=== PATIENT | male | born 1990 | race Caucasian/White ===

== ENCOUNTER 2017-11-13 10:02 | Emergency (ER) | payer OTHER ==
[~2017-11-13] VITALS: Ht 177.8 cm; Wt 98.5 kg
[2017-11-13 10:06] VITALS: TEMP 36.7; Ht 177.8 cm; Wt 98.5 kg
[2017-11-13] MEDS ORDERED: ONDANSETRON INJ 2 MG/ML 2 ML VIAL IV STA ×3 (10:17→13:02)
[2017-11-13] MEDS ORDERED: SODIUM CHLORIDE 0.9% 1000ML 1,000 ML IV STA ×2 (10:17→11:58)
[2017-11-13] MEDS ORDERED: MoRPHine SULFATE 4 MG/ML 1 ML CARP\\VIAL IV STA ×2 (10:25→12:55)
[2017-11-13 10:26] LABS: EOS % 0.1 %; EOS ABS # 0.01 K/uL (0-0.5); HEMOGLOBIN 17.8 g/dL (14.0-18.0); IG# 0.03 K/uL (0.00-0.02); LYMPH % 3.9 %; LYMPH ABS # 0.35 K/uL (1.2-3.4); MEAN CELL VOLUME 85.4 fL (80-100); MEAN CORPUSCULAR HGB CONC 36.3 g/dl (32-36); MEAN PLATELET VOLUME 9.8 fL (7.4-10.4); MONO ABS # 0.54 K/uL (0.11-0.59); NEUT % 89.7 %; NEUT ABS # 8.14 K/uL (1.4-6.5); PLATELET COUNT 231 K/uL (130-400); RED CELL DISTRIBUTION WIDTH CV 12.7 % (11.5-14.5); RED CELL DISTRIBUTION WIDTH SD 39.2 fL (36.4-46.3); WHITE BLOOD COUNT 9.07 K/uL (4.8-10.8)
[2017-11-13 10:48] LABS: ALBUMIN 4.5 gm/dl (3.4-5.0); CALCIUM 9.8 mg/dl (8.5-10.1); CREATININE 1.29 mg/dl (0.60-1.40); POTASSIUM 3.7 mmol/L (3.5-5.1)
[2017-11-13 10:51] LABS: TOTAL PROTEIN 8.5 gm/dl (6.4-8.2)
--- NOTE | 2017-11-13 11:01 | DIAGNOSTIC IMAGING REPORT ---
CT SCAN OF THE ABDOMEN AND PELVIS WITHOUT CONTRAST CLINICAL HISTORY: LUQ pain, vomiting COMPARISON STUDY: No previous studies for comparison. TECHNIQUE: CT scan of the abdomen and pelvis was performed from the lung bases to the proximal femurs. Images are reviewed in the axial, sagittal, and coronal planes. IV contrast was not administered for this examination. A dose lowering technique was utilized adhering to the principles of ALARA. CT DOSE: 1322.79 mGy.cm FINDINGS: Lower chest: The heart is normal in size and configuration, without pericardial effusion. The lung bases and pleural spaces are clear. Liver: The unenhanced liver is normal in size, contour, and attenuation. There is no intrahepatic biliary ductal dilatation. Gallbladder: Unremarkable. Spleen: Normal in size and attenuation. Pancreas: Unremarkable. Adrenal glands: Unremarkable. Kidneys: No left kidney is visualized. There are no renal, ureteral, or bladder calculi identified. Bowel: There are multiple fluid-filled small bowel loops. There is gastric distention. There is fluid present within nondilated right colon. The appendix appears normal. There are nondistended distal ileal loops. There is no evidence of acute diverticulitis. Peritoneum: There is no intraperitoneal free air or abdominal ascites. Vasculature: The abdominal aorta is normal in course and caliber. Adenopathy: None. Pelvic viscera: The bladder, and pelvic viscera are unremarkable. Skeletal structures: No destructive osseous lesions are seen. IMPRESSION: 1. Absent left kidney 2. No renal, ureteral, or bladder calculi identified 3. Normal appendix. No evidence of acute diverticulitis 4. Distended fluid-filled stomach 5. Multiple borderline distended fluid-filled small bowel loops with air-fluid levels. Although the distal small bowel is of normal caliber, a discrete transition zone is not identified. Diagnostic considerations include an ileus/enteritis versus a low-grade small bowel obstruction. Clinical follow-up is advocated Electronically signed by: Dwayne Delgado M.D. 11/13/2017 10:59 AM Dictated Date/Time: 11/13/2017 10:53 AM
--- NOTE | 2017-11-13 11:02 | DIAGNOSTIC IMAGING REPORT ---
CHEST ONE VIEW PORTABLE CLINICAL HISTORY: Pain, radiating to the left upper quadrant COMPARISON STUDY: No previous studies for comparison. FINDINGS: The cardiac and mediastinal contours are normal. There is no evidence of focal pulmonary consolidation. There is no evidence of failure. No pleural effusions are visualized.[ There is no free air. There are prominent upper abdominal bowel loops. IMPRESSION: No active disease in the chest. Electronically signed by: Dwayne Delgado M.D. 11/13/2017 11:01 AM Dictated Date/Time: 11/13/2017 11:00 AM
[2017-11-13] MEDS ORDERED: ONDA4TAB10 SL (13:15)
--- NOTE | 2017-11-13 13:16 | EMERGENCY ROOM VISIT NOTE ---
History Report prepared by Claudine: Cem Petersen Under the Supervision of: Dr. Aurelio Connors D.O. First contact with patient: 10:15 Chief Complaint: VOMITING Stated Complaint: ILLNESS Nursing Triage Summary: Pt reports LUQ pain. Vomiting since last night, also c/o diarrhea. Had hot wings to eat last night and had 3 tequila drinks over 3 hours. Reports emesis is orange/red in color. LUQ tender. History of Present Illness The patient is a 27 year old male who presents to the Emergency Room with complaints of worsening sharp LUQ pain rated as 8/10 that began 12 hours ago. The patient woke up last night every hour due to nausea, vomiting (5 episodes), dry heaving (3 episodes), and diarrhea (3 episodes). He states that last night, he ate hot wings and drank 3 shots of tequila. His states his emesis is orange/ red in color. He denies back pain and upper respiratory symptoms. He denies any medical problems. Source of History: patient Onset: 12 hours ago Position: abdomen (LUQ) Symptom Intensity: pain rated as 8/10 Quality: sharp Timing: worsening Associated Symptoms: + nausea, + vomiting, + diarrhea, No SOB, No back pain Review of Systems See HPI for pertinent positives & negatives. A total of 10 systems reviewed and were otherwise negative. Social History Smoking Status: Never Smoker Alcohol Use: occasionally Marital Status: single Housing Status: lives with friends Current/Historical Medications No Active Prescriptions or Reported Meds Allergies Coded Allergies: No Known Allergies (Unverified , 11/13/17) Physical Exam Vital Signs Date Time Temp Pulse Resp B/P (MAP) Pulse Ox O2 Delivery O2 Flow Rate FiO2 11/13/17 12:17 117 119/70 95 Room Air 11/13/17 10:58 115 20 120/92 96 Room Air 11/13/17 10:10 126 11/13/17 10:06 36.7 135 18 112/73 96 Room Air Physical Exam CONSTITUTIONAL/VITAL SIGNS: Reviewed / noted above. GENERAL: Non-toxic in appearance. INTEGUMENTARY: Warm, dry, and [place]. HEAD: Normocephalic. EYES: without scleral icterus or trauma. ENT/OROPHARYNX: clear and moist. LYMPHADENOPATHY/NECK: Is supple without lymphadenopathy or meningismus. RESPIRATORY: Lungs clear and equal. CARDIOVASCULAR: Tachycardiac rate. Regular rhythm. GI/ABDOMEN: Diffuse abdominal tenderness greater in the LUQ. Soft. No organomegaly or pulsatile mass. No rebound or guarding. Normal bowel sounds. EXTREMITIES: Warm and well perfused. BACK: No CVA tenderness. NEUROLOGICAL: Intact without focal deficits. PSYCHIATRIC: normal affect. MUSCULOSKELETAL: Normally developed with good muscle tone. Medical Decision & Procedures ER Provider Diagnostic Interpretation: Radiology results as stated below per my review and radiologist interpretation: CHEST ONE VIEW PORTABLE CLINICAL HISTORY: Pain, radiating to the left upper quadrant COMPARISON STUDY: No previous studies for comparison. FINDINGS: The cardiac and mediastinal contours are normal. There is no evidence of focal pulmonary consolidation. There is no evidence of failure. No pleural effusions are visualized.[ There is no free air. There are prominent upper abdominal bowel loops. IMPRESSION: No active disease in the chest. Electronically signed by: Dwayne Delgado M.D. 11/13/2017 11:01 AM Dictated Date/Time: 11/13/2017 11:[address] SCAN OF THE ABDOMEN AND PELVIS WITHOUT CONTRAST CLINICAL HISTORY: LUQ pain, vomiting COMPARISON STUDY: No previous studies for comparison. TECHNIQUE: CT scan of the abdomen and pelvis was performed from the lung bases to the proximal femurs. Images are reviewed in the axial, sagittal, and coronal planes. IV contrast was not administered for this examination. A dose lowering technique was utilized adhering to the principles of ALARA. CT DOSE: 1322.79 mGy.cm FINDINGS: Lower chest: The heart is normal in size and configuration, without pericardial effusion. The lung bases and pleural spaces are clear. Liver: The unenhanced liver is normal in size, contour, and attenuation. There is no intrahepatic biliary ductal dilatation. Gallbladder: Unremarkable. Spleen: Normal in size and attenuation. Pancreas: Unremarkable. Adrenal glands: Unremarkable. Kidneys: No left kidney is visualized. There are no renal, ureteral, or bladder calculi identified. Bowel: There are multiple fluid-filled small bowel loops. There is gastric distention. There is fluid present within nondilated right colon. The appendix appears normal. There are nondistended distal ileal loops. There is no evidence of acute diverticulitis. Peritoneum: There is no intraperitoneal free air or abdominal ascites. Vasculature: The abdominal aorta is normal in course and caliber. Adenopathy: None. Pelvic viscera: The bladder, and pelvic viscera are unremarkable. Skeletal structures: No destructive osseous lesions are seen. IMPRESSION: 1. Absent left kidney 2. No renal, ureteral, or bladder calculi identified 3. Normal appendix. No evidence of acute diverticulitis 4. Distended fluid-filled stomach 5. Multiple borderline distended fluid-filled small bowel loops with air-fluid levels. Although the distal small bowel is of normal caliber, a discrete transition zone is not identified. Diagnostic considerations include an ileus/enteritis versus a low-grade small bowel obstruction. Clinical follow-up is advocated Electronically signed by: Dwayne Delgado M.D. 11/13/2017 10:59 AM Dictated Date/Time: 11/13/2017 10:53 AM Laboratory Results 11/13/17 10:15 Red Blood Count 5.74, Mean Corpuscular Volume 85.4, Mean Corpuscular Hemoglobin 31.0, Mean Corpuscular Hemoglobin Concent 36.3, Mean Platelet Volume 9.8, Neutrophils (%) (Auto) 89.7, Lymphocytes (%) (Auto) 3.9, Monocytes (%) (Auto) 6.0, Eosinophils (%) (Auto) 0.1, Basophils (%) (Auto) 0.0, Neutrophils # (Auto) 8.14, Lymphocytes # (Auto) 0.35, Monocytes # (Auto) 0.54, Eosinophils # (Auto) 0.01, Basophils # (Auto) 0.00 11/13/17 10:15 Test 11/13/17 10:15 11/13/17 11:45 White Blood Count 9.07 K/uL (4.8-10.8) Red Blood Count 5.74 M/uL (4.7-6.1) Hemoglobin 17.8 g/dL (14.0-18.0) Hematocrit 49.0 % (42-52) Mean Corpuscular Volume 85.4 fL (80-100) Mean Corpuscular Hemoglobin 31.0 pg (25-34) Mean Corpuscular Hemoglobin Concent 36.3 g/dl (32-36) Platelet Count 231 K/uL (130-400) Mean Platelet Volume 9.8 fL (7.4-10.4) Neutrophils (%) (Auto) 89.7 % Lymphocytes (%) (Auto) 3.9 % Monocytes (%) (Auto) 6.0 % Eosinophils (%) (Auto) 0.1 % Basophils (%) (Auto) 0.0 % Neutrophils # (Auto) 8.14 K/uL (1.4-6.5) Lymphocytes # (Auto) 0.35 K/uL (1.2-3.4) Monocytes # (Auto) 0.54 K/uL (0.11-0.59) Eosinophils # (Auto) 0.01 K/uL (0-0.5) Basophils # (Auto) 0.00 K/uL (0-0.2) RDW Standard Deviation 39.2 fL (36.4-46.3) RDW Coefficient of Variation 12.7 % (11.5-14.5) Immature Granulocyte % (Auto) 0.3 % Immature Granulocyte # (Auto) 0.03 K/uL (0.00-0.02) Anion Gap 7.0 mmol/L (3-11) Est Creatinine Clear Calc Drug Dose 99.4 ml/min Estimated GFR () 86.3 Estimated GFR (Non- 74.4 BUN/Creatinine Ratio 17.3 (10-20) Calcium Level 9.8 mg/dl (8.5-10.1) Total Bilirubin 2.2 mg/dl (0.2-1) Direct Bilirubin 0.3 mg/dl (0-0.2) Aspartate Amino Transf (AST/SGOT) 23 U/L (15-37) Alanine Aminotransferase (ALT/SGPT) 39 U/L (12-78) Alkaline Phosphatase 96 U/L (45-117) Total Protein 8.5 gm/dl (6.4-8.2) Albumin 4.5 gm/dl (3.4-5.0) Lipase 97 U/L (73-393) Urine Color ORANGE Urine Appearance TURBID (CLEAR) Urine pH 5.5 (4.5-7.5) Urine Specific Matthews 1.030 (1.000-1.030) Urine Protein NEG (NEG) Urine Glucose (UA) NEG (NEG) Urine Ketones NEG (NEG) Urine Occult Blood NEG (NEG) Urine Nitrite NEG (NEG) Urine Bilirubin NEG (NEG) Urine Urobilinogen NEG (NEG) Urine Leukocyte Esterase NEG (NEG) Urine WBC (Auto) 1-5 /hpf (0-5) Urine RBC (Auto) 0-4 /hpf (0-4) Urine Hyaline Casts (Auto) 1-5 /lpf (0-5) Urine Epithelial Cells (Auto) 10-20 /lpf (0-5) Urine Bacteria (Auto) NEG (NEG) Laboratory results as stated above per my review. Medications Administered Medications (Trade) Dose Ordered Sig/Gordon Route Start Time Stop Time Status Last Admin Dose Admin Sodium Chloride 1,000 ml @ 999 mls/hr Q1H1M STAT IV 11/13/17 10:17 11/13/17 11:17 DC 11/13/17 10:22 999 MLS/HR Ondansetron HCl (Zofran Inj) 4 mg NOW STAT IV 11/13/17 10:17 11/13/17 10:19 DC 11/13/17 10:33 4 MG Morphine Sulfate (MoRPHine SULFATE INJ) 4 mg NOW STAT IV 11/13/17 10:25 11/13/17 10:27 DC 11/13/17 10:34 4 MG Sodium Chloride 1,000 ml @ 999 mls/hr Q1H1M STAT IV 11/13/17 11:58 11/13/17 12:58 DC 11/13/17 12:21 999 MLS/HR ED Course 1015: Previous medical records were reviewed. The patient was evaluated in room B6. A complete history and physical examination was performed. 1017: Zofran Inj, 4 mg, IV; Sodium Chloride 1000 ml @ 999 mls/hr IV. 1025: Morphine Sulfate Inj, 4 mg, IV. 1158: Sodium Chloride 1000 ml @ 999 mls/hr IV. 1255: Zofran Inj, 4 mg, IV; Morphine Sulfate Inj,4 mg, IV. 1302: Zofran Inj, 4 mg, IV. 1330: On reevaluation, the patient is resting. I discussed the results and findings with the patient. He verbalized agreement of the treatment plan. He was discharged home. Medical Decision Differential considered: pancreatitis, hepatitis, or acute cholecystitis, AAA, UTI, pyelonephritis, kidney stones, appendicitis, diverticulitis, shingles, bowel obstruction mesenteric ischemia, intussusception,hernia, testicular torsion. This is a 27-year-old male who presents to the ED with a chief complaint of nausea, vomiting diarrhea. The patient states that the symptoms started around last night with some mild discomfort in his left upper quadrant. The patient states that he had some hot wings and tequila prior to this. The patient states that he developed vomiting and diarrhea around 12 or 1:00 in the morning. He states that he had been vomiting about once an hour for about 4 -5 hours and has had 2 or 3 episodes of diarrhea. He presents this morning with left upper quadrant abdominal pain. His last episode of vomiting was about 1 hour prior to his arrival and diarrhea 2 or 3 hours prior to arrival. His vital signs revealed a tachycardia. His physical exam revealed some tenderness in left upper quadrant. CT scan of the abdomen pelvis reveals findings suggesting enteritis versus a low-grade small bowel obstruction. Enteritis is more likely based on the history. His CBC is normal, complete metabolic panel was unremarkable with exception of his BUN of 22 and his bilirubin was 2.2. Lipase was negative. The patient was treated with IV fluids, IV morphine and IV Zofran. He was feeling much better at the time of disposition. He was discharged on Zofran. Medication Reconcilliation Current Medication List: was personally reviewed by me Blood Pressure Screening Patient's blood pressure: Normal blood pressure Blood pressure disposition: Did not require urgent referral Impression Primary Impression: Nausea, vomiting, and diarrhea Scribe Attestation The scribe's documentation has been prepared under my direction and personally reviewed by me in its entirety. I confirm that the note above accurately reflects all work, treatment, procedures, and medical decision making performed by me. Departure Information Dispostion Home / Self-Care Prescriptions Ondasetron Odt (ZOFRAN ODT) 4 Mg Tab 4 MG SL Q6H for Nausea, #15 TAB Prov: Aurelio Connors D.O. 11/13/17 Patient Instructions ED Diet Vomiting Diarrhea, My [facility] Additional Instructions Zofran: Allow one tablet to dissolve under the tongue every 6 hours as needed for nausea or vomiting. Follow-up with your doctor for further care and evaluation in 2 days if symptoms persist. Return to the emergency department for worsening or new symptoms or any concerns. You have been examined and treated today on an emergency basis only. This is not a substitute for, or an effort to provide, complete comprehensive medical care. It is impossible to recognize and treat all injuries or illnesses in a single emergency department visit. It is therefore important that you follow up closely with your doctor. Call as soon as possible for an appointment.
[2017-11-13 13:51] VITALS: BP 109/66; PULSE 106; O2SAT 100
== END 2017-11-13 13:52 | disposition home or self-care (01) ==
LOC: EDBD 10:02 → C.EDB 10:03
DX: R11.2 Nausea with vomiting, unspecified (principal); R19.7 Diarrhea, unspecified; R79.89 Other specified abnormal findings of blood chemistry; R17 Unspecified jaundice